=== PATIENT | female | born 1985 | race Caucasian/White ===

== ENCOUNTER 2018-02-25 18:12 | Outpatient (REF) | payer BC, SELFPAY ==
--- NOTE | 2018-02-25 17:20 | SKI_PTH ---
PATIENT: Sosa Pike LOC: [facility] U#:[id number] AGE/SX: 32/F ROOM: RE02/25/[address]: Jourdan Yost : 1985 BED: DIS: 02/25/2018 SPEC #: [id number] RECD: 02/26/18 12:36 STATUS: SHANDA REMerlene #: [id number] ESSIE: 02/25/18 17:[address]: Jourdan Yost DEPT: Surgical Specimen RECD BY: Irma Carty Tissues: 1 - SKIN BIOPSY(SHAVE/PUNCH) Procedures: SKIN LEVEL 4 Comments: [id number]
== END 2018-02-25 18:32 ==
LOC: NCHCN 18:12
PROVIDERS: PCP Specialist/Technologist Athletic Trainer; Visit Provider Specialist/Technologist Athletic Trainer
DX: L82.1 Other seborrheic keratosis (principal)
CPT/HCPCS: 88305

== ENCOUNTER 2020-06-12 03:31 | Outpatient (CLI) | payer MEDICAID, SELFPAY ==
[2020-06-12 09:05] LABS: Abs Immature Grans 0.04 10^3/uL (0.0-0.06); Absolute Basophil Count 0.03 10^3/uL (0.0-0.2); Absolute Lymphocyte Count 1.81 10^3/uL (1.2-3.4); Absolute Neutrophil Count 5.14 10^3/uL (1.2-6.7); Basophils % 0.4; Eosinophils % 1.3; HCT 40.3 % (36.0-46.0); HGB 13.6 g/dL (11.2-15.7); Immature Grans % 0.5; Lymphocytes % 23.4; MCH 28.6 pg (27.0-33.0); MCHC 33.7 % (32.0-36.0); MCV 84.8 fL (80-95); MPV 9.8 fL (8.0-11.0); Monocytes % 7.8; Neutrophils % 66.6; Nucleated RBC 0 %; Platelet Count 258 10^3/uL (130-400); RBC 4.75 10^6/uL (3.93-5.22); RDW 11.9 % (11.7-14.6); RDW-SD 36.1 fL; WBC 7.72 10^3/uL (4.4-10.8)
[2020-06-12 09:15] LABS: Hemoglobin A1C 5.4 % (<5.7)
[2020-06-12 10:26] LABS: ALT 25 U/L (14-59); AST 8 U/L (15-37); Albumin 4.2 g/dL (3.4-5.0); Alkaline Phosphatase 81 U/L (46-116); Anion Gap 6.5 mmol/L (3-11); BUN 16 mg/dL (7-18); Bilirubin, Total 0.4 mg/dL (0.2-1.0); CO2 29.5 mmol/L (21.0-32.0); CREATININE 0.92 mg/dL (0.55-1.02); Calcium 9.1 mg/dL (8.5-10.1); Calculated LDL 73 mg/dL (<100); Chloride 107 mmol/L (98-107); Cholesterol 141 mg/dL (<200); Ferritin 61 ng/mL (8-252); Glucose 86 mg/dL (74-106); HDL Cholesterol 57 mg/dL (40-60); Potassium 4.9 mmol/L (3.5-5.1); Sodium 143 mmol/L (136-145); TSH 1.62 uIU/mL (0.36-3.74); Total Protein 7.5 g/dL (6.4-8.2); Triglyceride 56 mg/dL (<150)
[2020-06-12 12:18] LABS: FREE T4 1.17 ng/dL (0.76-1.46)
[2020-06-12 16:54] LABS: T3,Free 4.1 pg/mL (2.8-5.3)
[2020-06-12 17:10] LABS: T3, Total 124 ng/dL (97-169)
[2020-06-12 17:21] LABS: Thyroperoxidase Antibody <28 U/mL (<=60)
[2020-06-13 16:55] LABS: Lipoprotein (a) 52 mg/dL (<=30)
[2020-06-13 22:53] LABS: Zinc, Serum 0.83 mcg/mL (0.66-1.10)
[2020-06-14 04:54] LABS: Vitamin D 25 Total 31.6 ng/ml (30-100)
== END 2020-06-12 03:51 ==
PROVIDERS: PCP Specialist/Technologist Athletic Trainer; Visit Provider Naturopath
DX: R53.83 Other fatigue (principal); E55.9 Vitamin D deficiency, unspecified; L60.3 Nail dystrophy; Z83.49 Family history of other endocrine, nutritional and metabolic diseases
CPT/HCPCS: 36415; 80053; 80061; 82306; 83695; 82728; 83036; 84439; 84443; 84480; 84481; 84630; 85025; 86376